=== PATIENT | female | born 1945 | race Caucasian/White ===

== ENCOUNTER 2019-04-02 14:21 | Emergency (ER) | payer MEDICARE ==
--- NOTE | 2019-04-02 14:56 | ED ---
Syncope/Near Syncope - HPI Summary HPI Summary: Pt is a 73 y/o F presenting to the ED with a chief complaint of syncope. She states that last night around 1930, she began experiencing abdominal cramping, so she went to the bathroom and experienced a large amount of diarrhea accompanied by diaphoresis. She then went to lie down on the couch, and she experienced a syncopal episode for an unknown amount of time, but probably under an hour. Since then, she felt fine, but this morning after coming back from the [facility] market she began to feel lightheaded again. She did not have a syncopal episode today. She denies CP, SOB, palpitations, LE edema, LE myalgia , fever, vomiting, blood in stool, or vaginal bleeding. She notes she has been becoming fatigued quickly in comparison to normal, and has been meaning to see her guest service aide about this. - History Of Current Complaint Chief Complaint: EDSyncope Time Seen by Provider: 04/02/19 14:27 Hx Obtained From: Patient Onset/Duration: Sudden Onset, Resolved, Other - duration unknown Timing: Intermittent Episode Lasting Context: Unwitnessed, Loss Of Consciousness Activity At Onset: Other - walking to lie down after episode of diarrhea Aggravating Factor(s): Nothing Alleviating Factor(s): Spontaneous Resolution Associated Signs And Symptoms: Diarrhea, Diaphoresis, Lightheadedness Frequency: Episodes x___ - 1, Episodes Lasting ____ (in Mins/Days/Weeks/Years) - unknown - Allergies/Home Medications Allergies/Adverse Reactions: Allergies Allergy/AdvReac Type Severity Reaction Status Date / Time MS Alendronate [From Fosamax] Allergy Unknown Unknown Verified 12/28/18 08:51 Reaction Details MS Eszopiclone [From Lunesta] Allergy Unknown Unknown Verified 12/28/18 08:51 Reaction Details PMH/Surg Hx/FS Hx/Imm Hx Previously Healthy: Yes Endocrine/Hematology History: Denies: Hx Blood Disorders - blood clots, Hx Diabetes, Hx Thyroid Disease Cardiovascular History: Reports: Hx Valvular Heart Disease - mitral valve replacement 2yrs ago Denies: Hx Hypertension Respiratory History: Reports: Hx Sleep Apnea Denies: Hx Asthma, Hx Chronic Obstructive Pulmonary Disease (COPD) GI History: Denies: Hx Ulcer Musculoskeletal History: Reports: Hx Rheumatoid Arthritis, Hx Osteoporosis - Surgical History Surgery Procedure, Year, and Place: T&A Infectious Disease History: No Infectious Disease History: Denies: Hx Hepatitis, Hx Human Immunodeficiency Virus (HIV), Traveled Outside the [place] in Last 30 Days - Family History Known Family History: Negative: Diabetes, Blood Disorder - Social History Alcohol Use: None Hx Substance Use: No Substance Use Type: Reports: None Hx Tobacco Use: No Smoking Status (MU): Never Smoked Tobacco Review of Systems Positive: Fatigue - easier to fatigue on exertion. Negative: Fever Negative: Palpitations, Chest Pain Negative: Shortness Of Breath Positive: Abdominal Pain, Diarrhea. Negative: Vomiting, Other - blood in stool Negative: other - vaginal bleeding Negative: Myalgia, Edema Neurological: Other - lightheadedness Positive: Syncope All Other Systems Reviewed And Are Negative: Yes Physical Exam - Summary Physical Exam Summary: Constitutional: Well-developed, Well-nourished, Alert. (-) Distressed Skin: Warm, Dry HENT: Normocephalic; Atraumatic Eyes: Conjunctiva normal Neck: Musculoskeletal ROM normal neck. (-) JVD, (-) Stridor, (-) Tracheal deviation Cardio: Rhythm regular, rate normal, Heart sounds normal; Intact distal pulses; Radial pulses are 2+ and symmetric. 3/6 systolic murmur present. Pulmonary/Chest wall: Effort normal. (-) Respiratory distress, (-) Wheezes, (-) Rales Abd: Soft, (-) tenderness, (-) Distension, (-) Guarding, (-) Rebound Musculoskeletal: (-) Edema Lymph: (-) Cervical adenopathy Neuro: Alert, Oriented x3 Psych: Mood and affect Normal Triage Information Reviewed: Yes Vital Signs On Initial Exam: Initial Vitals Temp Pulse Resp BP Pulse Ox 97.4 F 76 14 165/80 100 04/02/19 14:23 04/02/19 14:23 04/02/19 14:23 04/02/19 14:23 04/02/19 14:23 Vital Signs Reviewed: Yes Procedures - Sedation Patient Received Moderate/Deep Sedation with Procedure: No Diagnostics - Vital Signs Vital Signs Temp Pulse Resp BP Pulse Ox 04/02/19 14:23 97.4 F 76 14 165/80 100 - Laboratory Result Diagrams: 04/02/19 14:54 04/02/19 14:54 Lab Statement: Any lab studies that have been ordered have been reviewed, and results considered in the medical decision making process. - EKG 1449 Cardiac Rate: NL - 72bpm EKG Rhythm: Sinus Rhythm ST Segment: Normal Ectopy: None Summary of EKG Findings: EKG at 1449 shows NSR at 72bpm with no STEMI. Re-Evaluation - Re-Evaluation 1st re-eval Re-Evaluation Time: 16:00 Change: Improved Comment: Pt is asymptomatic here in the ED. I offered her admission and she declined. Course/Dx Course Of Treatment: Patient is here with 2 episodes of syncope/presyncope. Patient's first episode did sound orthostatic in nature as she fainted after getting off of the toilet. Her second episode today was more concerning as she was standing for an extended period of time prior to this. Patient arrived appearing well overall. Patient had a normal EKG. Patient a CBC, CMP, troponin , BNP performed for all grossly unremarkable outside of mild hyponatremia which she is aware of. Patient did have a UA which showed UTI. Patient started on Macrobid. Patient was offered admission for syncope but declined. - Diagnoses Provider Diagnoses: Syncope, UTI (urinary tract infection) Discharge ED - Sign-Out/Discharge Documenting (check all that apply): Patient Departure - Discharge Plan Condition: Stable Disposition: HOME Prescriptions: Nitrofurantoin Monohyd/M-Cryst [Macrobid 100 mg Capsule] 100 mg PO BID 5 Days # 10 cap Patient Education Materials: Urinary Tract Infection in Older Adults (ED), Syncope in Older Adults (ED) Referrals: Isaac Fuller MD [Primary Care Provider] - Additional Instructions: Take your antibiotics as prescribed. Call 911 if you have another episode where you feel like you are going to faint , you feel chest pain, or your heart is racing. Follow up with Dr. Fuller within the next 1-3 days. - Billing Disposition and Condition Condition: STABLE Disposition: Home - Attestation Statements Document Initiated by Scribe: Yes Documenting Scribe: Letty Clifton Provider For Whom Hanna is Documenting (Include Credential): Kev Day MD. Scribe Attestation: Letty Barraza, scribed for Kev Day MD. on 04/02/19 at 1647. Scribe Documentation Reviewed: Yes Provider Attestation: The documentation as recorded by the scribe, Letty Clifton accurately reflects the service I personally performed and the decisions made by me, Kev Day MD. Status of Terraibmagdaleno Document: Viewed
[2019-04-02 15:05] LABS: ABS Eosinophils 0.2 10^3/ul (0-0.6); ABS Lymphocytes 2.6 10^3/ul (1.0-4.8); ABS Monocytes 0.8 10^3/ul (0-0.8); ABS Neutrophils 3.1 10^3/ul (1.5-7.7); Eosinophil % 3.3 %; Hematocrit 30 % (35-47); Hemoglobin 10.1 g/dL (12.0-16.0); Lymphocyte % 38.1 %; Mean Corpuscular HGB Conc 33 g/dL (31-36); Mean Corpuscular Hemoglobin 30 pg (27-31); Mean Corpuscular Volume 91 fL (80-97); Mean Platelet Volume 7.3 fL (7.4-10.4); Nucleated Red Blood Cells % 0.1; Platelet Count 303 10^3/uL (150-450); Red Blood Count 3.33 10^6 /uL (3.70-4.87); Red Cell Distribution Width 15 % (10-15); White Blood Count 6.7 10^3/uL (3.5-10.8)
--- OUTSIDE RECORDS SUMMARY | 2019-04-02 15:31 | XMS REPORT | Continuity of Care Document ---
:1945 External Reference #:[id number] Author Name Nata Godwin DNP, RN, VIBRATING SCREED OPERATOR-BC (transmitted by agent of provider Mariella Bourgeois) Address [address], [address] [place] [id number] Care Team Providers Name Role Phone Isaac Fuller MD - Endocrinology, Care Team Information Service Desk Director Diabetes & Metabolism Chief Safety Officer Prosthetics & Orthotics - Care Team Information Service Desk Director [phone] Prosthetic/Orthotic Supplier Payal Pope PA - Medical Care Team Information Service Desk Director Yrn Schultz MD - Rheumatology Care Team Information Service Desk Director Problems Active Problems Provider Date Rheumatoid arthritis Theron Brown M.D. Onset: 04/30/2012 Medications Dispatch Manager (Current) Use Theron Brown M.D. Onset: 04/30/2012 Encounter Osteoporosis Theron Brown M.D. Onset: 10/29/2012 Taking medication CASIMIRO Winslow Onset: 12/06/2014 Obstructive sleep apnea syndrome Nata Godwin DNP, RN, VIBRATING SCREED OPERATOR-BC Onset: 05/2019 Hypersomnia Nata Godwin DNP, RN, VIBRATING SCREED OPERATOR-BC Onset: 01/07/2019 Sleep-wake schedule disorder, Nata Godwin DNP, RN, VIBRATING SCREED OPERATOR-BC Onset: 2018 advanced phase type Social History Type Date Description Comments Sex Unknown Tobacco Use Start: Unknown Never Smoked Cigarettes Smoking Status Reviewed: 02/22/19 Never Smoked Cigarettes ETOH Use Denies alcohol use Tobacco Use Start: Unknown Patient has never smoked Recreational Drug Use Denies Drug Use Exercise Type/Frequency Exercises regularly Lives on 5th floor and walks stairs, shakes to music 15 min. per day, yoga 3x per week, physical activities at [facility]: 2 classes, 3x per week each Exercise Type/Frequency Exercises at a [facility] 6 days per week club daily Allergies, Adverse Reactions, Alerts Active Allergies Reaction Severity Comments Date Fosamax 10/07/2016 Lunesta 10/07/2016 Inactive Allergies NKDA 11/26/2010 Medications Active Medications SIG Qnty Indications Ordering Provider Date Enbrel inject 1ml 8units M05.79 Yrn Schultz, 12/19/2014 25mg Solution (25mg) under the M.D. Rec skin once weekly Z79.899 Vitamin D3 1 by mouth daily Unknown 2000Iu Capsules [id number] Ethyl Esters 1 by mouth daily Unknown 1gm Capsules Biotin 5mg 1 daily Unknown Capsules Prolia 60 mg sc [id number] Unknown 60mg/ml Solution Multi Vitamin Osteoprime Forte bone formula. 2 Unknown by mouth two times per day. Immunizations Description No Information Available Vital Signs Date Vital Result Comment 02/22/2019 11:26am Height 64 inches 5'4" Weight 116.50 lb Heart Rate 80 /min BP Systolic Sitting 104 mmHg Lue reg cuff BP Diastolic Sitting 64 mmHg Lue reg cuff Respiratory Rate 18 /min O2 % BldC Oximetry 98 % On Ra BMI (Body Mass Index) 20.0 kg/m2 01/07/2019 9:08am Height 64 inches 5'4" Weight 120.00 lb Heart Rate 80 /min BP Systolic Sitting 92 mmHg left arm reg cuff BP Diastolic Sitting 60 mmHg left arm reg cuff Respiratory Rate 12 /min O2 % BldC Oximetry 97 % room air BMI (Body Mass Index) 20.6 kg/m2 Results Test Date Facility Test Result H/L Range Note CBC Auto 11/08/2018 [facility] White Blood 10.1 10^3/uL Normal 3.5-10.[address] [place] [address] [phone] Red Blood Count 3.40 10^6/uL Low 3.70-4.87 Hemoglobin 10.1 g/dL Low 12.0-16.0 Hematocrit 30 % Low 35-47 Mean Corpuscular Volume 88 fL Normal 80-97 Mean Corpuscular Hemoglobin 30 pg Normal 27-31 Mean Corpuscular HGB Conc 34 g/dL Normal 31-36 Red Cell Distribution Width 14 % Normal 10.5-15 Platelet Count 289 10^3/uL Normal 150-450 Mean Platelet Volume 7.9 fL Normal 7.4-10.4 Abs Neutrophils 6.2 10^3/uL Normal 1.5-7.7 Abs Lymphocytes 2.3 10^3/uL Normal 1.0-4.8 Abs Monocytes 1.5 10^3/uL High 0-0.8 Abs Eosinophils 0.1 10^3/uL Normal 0-0.6 Abs Basophils 0.0 10^3/uL Normal 0-0.2 Abs Nucleated RBC 0.0 10^3/uL Granulocyte % 61.4 % Lymphocyte % 22.6 % Monocyte % 15.2 % Eosinophil % 0.6 % Basophil % 0.2 % Nucleated Red Blood Cells % 0.0 Laboratory test 11/08/2018 [facility] Ferritin 18.7 ng/mL Normal 11-307 finding [address] [place] [address] [phone] Iron & Iron 11/08/2018 [facility] Total Iron 388 g/dL Normal 250-450 Binding [address] [facility] [place] [address] Capacity [phone] Transferrin 277 mg/dL Normal 203-362 Iron < 17 g/dL Low 50-212 Unsaturated Iron Binding < 373 g/dL % Iron Saturation 4 % Low 15-55 Laboratory test 11/08/2018 [facility] Magnesium 2.0 mg/dL Normal 1.9-2.7 finding [address] [place] [address] [phone] TSH (Thyroid Stim Horm) 0.76 mcIU/mL Normal 0.34-5.60 Vitamin B12 496 pg/mL Normal 180-914 1 1,25 Dihydroxy 11/08/2018 [facility] Calcitriol 53 pg/mL 18- 78 2 Vitamin D [address] [place] [address] [phone] Basic Metabolic 11/08/2018 [facility] Sodium 134 mmol/L Low 135-145 Panel [address] [place] [address] [phone] Potassium 4.3 mmol/L Normal 3.5-5.0 Chloride 102 mmol/L Normal 101-111 Co2 Carbon Dioxide 26 mmol/L Normal 22-32 Anion Gap 6 mmol/L Normal 2-11 Glucose 114 mg/dL High 70-100 Blood Urea Nitrogen 13 mg/dL Normal 6-24 Creatinine 0.55 mg/dL Normal 0.51-0.95 BUN/Creatinine Ratio 23.6 High 8-20 Egfr Non- 107.8 >60 Egfr 130.4 >60 3 Laboratory test 11/08/2018 [facility] Calcium 8.7 mg/dL Normal 8.6-10.3 finding [address] [place] [address] [phone] 1 Normal Range 180 to 914 Indeterminate Range 145 to 180 Deficient Range <145 2 ADDITIONAL INFORMATION This test was developed and its performance characteristics determined by [facility] in a manner consistent with CLIA requirements. This test has not been cleared or approved by the U.S. Food and Drug Administration. Test Performed by: [facility] [address] [place] [address] 3 Because ethnic data is not always readily available, this report includes an eGFR for both -Americans and non- Americans. The National Kidney Disease Education Program (NKDEP) does not endorse the use of the MDRD equation for patients that are not between the ages of 18 and 70, are , have extremes of body size, muscle mass, or nutritional status, or are non- or non-. According to the National Kidney Foundation, irrespective of diagnosis, the stage of the disease is based on the level of kidney function: Stage Description GFR(mL/min/1.73 m(2)) 1 Kidney damage with normal or decreased GFR 90 2 Kidney damage with mild decrease in GFR 60-89 3 Moderate decrease in GFR 30-59 4 Severe decrease in GFR 15-29 5 Kidney failure <15 (or dialysis) Procedures Date Code Description Status 09/29/2018 50060 Polysomnography Sleep Staging 4+ Parameters Completed 09/02/2018 15176 Sleep Study Unattended,HRT Rate,Oxygen Sat,Resp Completed Effort/Airflow 05/24/2010 44949876 Mammogram Completed Medical Devices Description No Information Available Encounters Type Date Location Provider Dx Diagnosis Office Visit 01/07/2019 Pulmonology And Nata Godwin, G47.33 Obstructive sleep 9:15a [facility] RN, [facility] apnea (adult) [facility] (pediatric) G47.14 Hypersomnia due to medical condition 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, advanced sleep phase type Office Visit 01/04/2019 2:30p Rheumatology Yessenia Summers, M05.79 Rhe[facility] rheu factor mult site w/o org/sys involv D50.9 Iron deficiency anemia, unspecified G47.33 Obstructive sleep apnea (adult) (pediatric) Z79.899 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 Office Visit 12/15/2018 Pulmonology And Nata G47.33 Obstructive sleep 2:30p [facility] Godwin RN, apnea (adult) [facility] (pediatric) D50.9 Iron deficiency anemia, unspecified R53.82 Chronic fatigue, unspecified Office Visit 12/13/2018 9:30a [facility] Payal Pope, R53.82 Chronic fatigue, [facility] unspecified R14.0 Abdominal distension (gaseous) G47.33 Obstructive sleep apnea (adult) (pediatric) D50.9 Iron deficiency anemia, unspecified [facility] Chronic fatigue, [facility] unspecified R14.0 Abdominal distension (gaseous) M05.79 Rheu arthritis rheu factor mult site w/o org/sys involv G47.33 Obstructive sleep apnea (adult) (pediatric) D50.9 Iron deficiency anemia, unspecified M85.80 Ot disrd of bone density and structure, unspecified site Office Visit 11/03/2018 2:30p Pulmonology And Nata R06.81 Apnea, not [facility] Godwin, RN, elsewhere [facility] classified G47.14 Hypersomnia due to medical condition R09.02 Hypoxemia R53.83 Other fatigue Office Visit 09/02/2018 3:00p Pulmonology And Di G47.9 Sleep disorder, [facility] MD Nadine unspecified [facility] G47.33 Obstructive sleep apnea (adult) (pediatric) Assessments Date Code Description Provider 02/22/2019 G47.33 Obstructive sleep apnea (adult) Nata Godwin DNP, RN, VIBRATING SCREED OPERATOR-BC (pediatric) 02/22/2019 G47.14 Hypersomnia due to medical Nata Godwin DNP, RN, VIBRATING SCREED OPERATOR- BC condition 02/22/2019 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, Nata Godwin DNP, RN , VIBRATING SCREED OPERATOR-BC advanced sleep phase type 01/07/2019 G47.33 Obstructive sleep apnea (adult) Nata Godwin DNP, RN, VIBRATING SCREED OPERATOR-BC (pediatric) 01/07/2019 G47.14 Hypersomnia due to medical Nata Godwin DNP, RN, VIBRATING SCREED OPERATOR- BC condition 01/07/2019 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, Nata Godwin DNP, RN , VIBRATING SCREED OPERATOR-BC advanced sleep phase type 01/04/2019 M05.79 Rheumatoid arthritis with Zsofia Kristopher, VIBRATING SCREED OPERATOR rheumatoid factor of multiple site 01/04/2019 D50.9 Iron deficiency anemia, Zsofia Kristopher, VIBRATING SCREED OPERATOR unspecified 01/04/2019 G47.33 Obstructive sleep apnea (adult) Zsofia Kristopher, VIBRATING SCREED OPERATOR (pediatric) 01/04/2019 Z79.899 Other automotive sales professional (current) drug Zsofia Kristopher, VIBRATING SCREED OPERATOR therapy 12/15/2018 G47.33 Obstructive sleep apnea (adult) Nata Godwin DNP, RN, VIBRATING SCREED OPERATOR-BC (pediatric) 12/15/2018 D50.9 Iron deficiency anemia, Nata Godwin DNP, RN, VIBRATING SCREED OPERATOR-BC unspecified 12/15/2018 R53.82 Chronic fatigue, unspecified Nata Godwin DNP, RN, VIBRATING SCREED OPERATOR -BC 12/13/2018 R53.82 Chronic fatigue, unspecified Payal Pope PA 12/13/2018 R14.0 Abdominal distension (gaseous) RASHAUN Donahue 12/13/2018 G47.33 Obstructive sleep apnea (adult) RASHAUN Donahue (pediatric) 12/13/2018 D50.9 Iron deficiency anemia, RASHAUN Donahue unspecified 11/18/2018 R53.82 Chronic fatigue, unspecified RASHAUN Donahue 11/18/2018 R14.0 Abdominal distension (gaseous) RASHAUN Donahue 11/18/2018 M05.79 Rheumatoid arthritis with RASHAUN Donahue rheumatoid factor of multiple site 11/18/2018 G47.33 Obstructive sleep apnea (adult) RASHAUN Donahue (pediatric) 11/18/2018 D50.9 Iron deficiency anemia, RASHAUN Donahue unspecified 11/18/2018 M85.80 Other specified disorders of bone RASHAUN Donahue density and structure, uns 11/03/2018 R06.81 Apnea, not elsewhere classified Nata Godwin DNP, RN, VIBRATING SCREED OPERATOR-BC 11/03/2018 G47.14 Hypersomnia due to medical Nata Godwin DNP, RN, VIBRATING SCREED OPERATOR- BC condition 11/03/2018 R09.02 Hypoxemia Nata Godwin DNP, RN, VIBRATING SCREED OPERATOR-BC 11/03/2018 R53.83 Other fatigue Nata Godwin DNP, RN, VIBRATING SCREED OPERATOR-BC 09/29/2018 R06.83 Snoring Di Mccoy MD 09/29/2018 R40.0 Somnolence Di Mccoy MD 09/29/2018 R06.81 Apnea, not elsewhere classified Di Mccoy MD 09/02/2018 G47.33 Obstructive sleep apnea (adult) Di Mccoy MD (pediatric) 09/02/2018 G47.9 Sleep disorder, unspecified Di Mccoy MD 09/02/2018 G47.33 Obstructive sleep apnea (adult) Di Mccoy MD (pediatric) Plan of Treatment Future Appointment(s):04/11/2019 9:30 am - Nata Godwin DNP, RN, VIBRATING SCREED OPERATOR-BC at [facility]07/12/2019 2:00 pm - CASIMIRO Winslow at [facility]02/22/2019 - Nata Godwin DNP, RN, VIBRATING SCREED OPERATOR- BCG47.33 Obstructive sleep apnea (adult) (pediatric)New Orders:Sleep Study, Ordered: 02/22/19Sleep-Homecare, Ordered: 02/22/19Comments:Sleep Apnea - NPSG AHI 40.1/hour, tiara oxygen 90% BMI 21.5Follow up:6 weeksRecommendations:Continue PAP device, Benefitting and compliant with treatment. Cleaning Wipe off mask daily (baby wipe-no scent, or warm water) Clean mask, tubing, filter, and water chamber weekly in mild no scent dish soap and water. Hang to dry. If you have any sleepiness while driving you MUST avoid operating a vehicle or machinery. If you have difficulty with your equipment, or need to replace your mask or hoses, please contact your homecare agency. A weight change of 20 pounds or more may have an effect onyour equipment ; if you are experiencing problems please call for an appointment. If you have any further questions, please call the [facility] at .G47.14 Hypersomnia due to medical conditionRecommendations:Will need to conduct Maintenance of Wakefulness Test (MWT) If you have any sleepiness while driving you MUST avoid operating a vehicle or machinery.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, advanced sleep phase typeRecommendations:Advanced sleep phase Bedtime 10 PM, wake-up time 4 AM try to be consistent with the wake up time andcut back on the number of naps you take per day. Work with Payal about the sleepiness after meals. Functional Status Description No Information Available Mental Status Description No Information Available Referrals Description No Information Available
[2019-04-02 15:50] LABS: Albumin 3.9 g/dL (3.2-5.2); Albumin/Globulin Ratio 1.4 (1-3); BUN/Creatinine Ratio 25.5 (8-20); Calcium 9.1 mg/dL (8.6-10.3); EGFR African American 142.3 (>60); EGFR Non-African American 117.6 (>60); Globulin 2.8 g/dL (2-4); Potassium 4.1 mmol/L (3.5-5.0); Total Bilirubin 0.3 mg/dL (0.2-1.0); Total Protein 6.7 g/dL (6.4-8.9)
[2019-04-02 16:20] LABS: Urine Appearance Cloudy; Urine Bacteria 1+ (Absent); Urine Bilirubin Negative (Negative); Urine Blood Negative (Negative); Urine Color Yellow; Urine Glucose Negative (Negative); Urine Ketones Negative (Negative); Urine Nitrite Negative (Negative); Urine Protein Negative (Negative); Urine Red Blood Cell Trace(0-2/hpf) (Absent); Urine Specific Gravity 1.009 (1.010-1.030); Urine Urobilinogen Negative (Negative); Urine White Blood Cell Trace(0-5/hpf) (Absent)
[2019-04-02 16:42] VITALS: BP 110/58
== END 2019-04-02 16:39 | disposition home or self-care (01) ==
LOC: ED 14:21
DX: R55 Syncope and collapse (principal); N39.0 Urinary tract infection, site not specified; Z95.2 Presence of prosthetic heart valve; Z88.8 Allergy status to other drugs, medicaments and biological substances; Z79.899 Other long term (current) drug therapy
CPT/HCPCS: 36415; 80053; 81003; 81015; 83880; 84484; 85025; 87077; 87086; 87186; 93005; 99282

== ENCOUNTER 2019-07-31 14:30 | Emergency (ER) | payer MEDICARE ==
--- NOTE | 2019-07-31 15:57 | ED ---
Altered Mental Status - HPI Summary HPI Summary: 73 year old female presents to the ED with a chief complaint of memory loss starting yesterday morning. Patient family concerned that she has had poor recollection over the past several days. 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 She is normally alert and has good memory at baseline. Patient's family also reports nausea, vomiting, and diarrhea 2 days ago, now resolved. No fever. Patient has been eating normally today, did have slightly dec PO intake past several days. Patient presented to the ED with a urinary infection several months ago. History of pace maker. No history of blood thinners. No recent trauma or falls. No similar presentations in past. - History Of Current Complaint Chief Complaint: EDNeurologicalDeficit Stated Complaint: MEMORY LOSS PER PT Time Seen by Provider: 07/31/19 15:16 Hx Obtained From: Patient, Family/Medical Recruiter Hx From Patient Unobtainable Due To: Altered Mental Status Onset/Duration: Still Present, Suddenly Timing: Lasting Days Severity Initially: Moderate Severity Currently: Moderate Character: Confusion Aggravating Factor(s): Unknown Alleviating Factor(s): Unknown Associated Signs And Symptoms: Positive: Nausea. Negative: Fever - Allergies/Home Medications Allergies/Adverse Reactions: Allergies Allergy/AdvReac Type Severity Reaction Status Date / Time No Known Allergies Allergy Verified 07/31/19 14:35 PMH/Surg Hx/FS Hx/Imm Hx Endocrine/Hematology History: Denies: Hx Blood Disorders - blood clots, Hx Diabetes, Hx Thyroid Disease Cardiovascular History: Reports: Hx Valvular Heart Disease - mitral valve replacement 2yrs ago Denies: Hx Hypertension Respiratory History: Reports: Hx Sleep Apnea Denies: Hx Asthma, Hx Chronic Obstructive Pulmonary Disease (COPD) GI History: Denies: Hx Ulcer Musculoskeletal History: Reports: Hx Rheumatoid Arthritis, Hx Osteoporosis - Surgical History Surgery Procedure, Year, and Place: T&A Infectious Disease History: No Infectious Disease History: Denies: Hx Hepatitis, Hx Human Immunodeficiency Virus (HIV), Traveled Outside the [place] in Last 30 Days - Family History Known Family History: Negative: Diabetes, Blood Disorder - Social History Alcohol Use: None Hx Substance Use: No Substance Use Type: Reports: None Hx Tobacco Use: No Smoking Status (MU): Never Smoked Tobacco Review of Systems Negative: Fever Positive: Vomiting, Diarrhea, Nausea Neurological: Other - Amnesia All Other Systems Reviewed And Are Negative: Yes Physical Exam - Summary Physical Exam Summary: Constitutional: Well-developed, Well-nourished, Alert. (-) Distressed Skin: Warm, Dry HENT: Normocephalic; Atraumatic Eyes: Conjunctiva normal Neck: Musculoskeletal ROM normal neck. (-) JVD, (-) Stridor, (-) Nuchal rigidity Cardio: Rhythm regular, rate normal, Heart sounds normal; Intact distal pulses; Radial pulses are 2+ and symmetric. +Systolic heart murmur. Pulmonary/Chest wall: Effort normal. (-) Respiratory distress, (-) Wheezes, (-) Rales Abd: Soft, (-) tenderness, (-) Distension, (-) Guarding, (-) Rebound Musculoskeletal: (-) Edema Neuro: Alert, Oriented x3, CN 2-12 grossly intact, strength 5/5 UE and LE. SILT. Ambulates w steady gait. Psych: Mood and affect Normal Triage Information Reviewed: Yes Vital Signs On Initial Exam: Initial Vitals Temp Pulse Resp BP Pulse Ox 97.6 F 75 18 143/67 98 07/31/19 14:31 07/31/19 14:31 07/31/19 14:31 07/31/19 14:31 07/31/19 14:31 Vital Signs Reviewed: Yes Procedures - Sedation Patient Received Moderate/Deep Sedation with Procedure: No Diagnostics - Vital Signs Vital Signs Temp Pulse Resp BP Pulse Ox 07/31/19 15:00 69 97 07/31/19 14:44 74 97 07/31/19 14:42 72 134/63 97 07/31/19 14:31 97.6 F 75 18 143/67 98 - Laboratory Result Diagrams: 07/31/19 15:54 07/31/19 15:54 Lab Statement: Any lab studies that have been ordered have been reviewed, and results considered in the medical decision making process. - Radiology CXR Radiology Interpretation Completed By: Radiologist Summary of Radiographic Findings: IMPRESSION: 1. No acute cardiopulmonary process by radiograph. 2. Postoperative changes as above. An ED physician has reviewed this report. - CT Brain CT CT Interpretation Completed By: Radiologist Summary of CT Findings: IMPRESSION: 1. No acute intracranial abnormality. 2. Mild chronic small vessel ischemic disease is likely. An ED physician has reviewed this exam. - EKG 1548 Cardiac Rate: NL - 67 bpm EKG Rhythm: Sinus Rhythm ST Segment: Normal Ectopy: None EKG Comparison: No Significant Change Summary of EKG Findings: An EKG at 15:48 reveals normal sinus rhythm at 67 bpm, nml axis, nml intervals. No STEMI. No acute changes. ED physician has reviewed and interpreted this EKG. Re-Evaluation - Re-Evaluation First Eval Re-Evaluation Time: 15:30 Change: Improved - d/w family about CT head and labs. Patient had B12 and TSH done several days ago. 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 Instructed to return to ED for worsening symptoms and given neurology follow up. Altered Mental Statu Course/Dx - Course Course Of Treatment: 73 y/o F w hx RA p/w episode of AMS/memory loss, now improving. - VSS NAD. PE w elderly female, AAOx3. Neuro exam unremarkable. - labs w Na 127 from 132 (do not think mild hyponatremia would cause symptoms), given IVF in setting of dehydration. No e/o PNA on CXR or infection on UA. CT brain neg for acute pathology. Salicylates neg. At this time, unclear cause of symptoms but no further emergent testing required. Patient still "foggy" about some things but improving per family. Can be safely discharged w family. - Diagnoses Provider Diagnoses: Confusion, Hyponatremia Is Visit Related: No Discharge ED - Sign-Out/Discharge Documenting (check all that apply): Patient Departure - Discharge home - Discharge Plan Condition: Stable Disposition: HOME Patient Education Materials: Encephalopathy (DC) Referrals: Dudley Arambula MD [Medical Doctor] - Additional Instructions: You were seen in the emergency department for confusion and memory loss. Your head CT did not show any other maladies. Your lab work showed a low sodium which can be seen in dehydration. We gave you IV fluids. You can follow-up with neurology as needed. If any studies were not completed at the time of discharge you will be called with the relevant results. Please follow up with your primary care doctor in next 2-3 days and return to emergency department for worsening confusion, fevers, falls, or concerning symptoms. It was a pleasure taking care of you today. - Billing Disposition and Condition Condition: STABLE Disposition: Home - Attestation Statements Document Initiated by Terraibmagdaleno: Yes Documenting Scribe: Oral Kyle Provider For Whom Hanna is Documenting (Include Credential): Gerry Mims MD Scribe Attestation: Oral Barraza, scribed for Gerry Mims MD on 07/31/19 at 1830. Scribe Documentation Reviewed: Yes Provider Attestation: The documentation as recorded by the scribeOral accurately reflects the service I personally performed and the decisions made by , Gerry Mims MD Status of Scribe Document: Viewed
[2019-07-31 16:01] LABS: ABS Lymphocytes 2.2 10^3/ul (1.0-4.8); ABS Monocytes 0.9 10^3/ul (0-0.8); ABS Neutrophils 4.3 10^3/ul (1.5-7.7); Eosinophil % 0.6 %; Hematocrit 29 % (35-47); Hemoglobin 9.7 g/dL (12.0-16.0); Lymphocyte % 29.7 %; Mean Corpuscular HGB Conc 34 g/dL (31-36); Mean Corpuscular Hemoglobin 31 pg (27-31); Mean Corpuscular Volume 91 fL (80-97); Mean Platelet Volume 7.3 fL (7.4-10.4); Nucleated Red Blood Cells % 0.1; Platelet Count 306 10^3/uL (150-450); Red Blood Count 3.18 10^6 /uL (3.70-4.87); Red Cell Distribution Width 14 % (10-15); White Blood Count 7.5 10^3/uL (3.5-10.8)
[2019-07-31 16:17] LABS: Salicylate < 2.50 mg/dL (<30)
[2019-07-31 16:18] LABS: ALT 27 U/L (7-52); AST 23 U/L (13-39); Albumin 3.8 g/dL (3.2-5.2); Albumin/Globulin Ratio 1.5 (1-3); Alkaline Phosphatase 42 U/L (34-104); Anion Gap 4 mmol/L (2-11); Blood Urea Nitrogen 12 mg/dL (6-24); CO2 Carbon Dioxide 26 mmol/L (22-32); Calcium 8.3 mg/dL (8.6-10.3); Chloride 97 mmol/L (101-111); EGFR African American 145.5 (>60); EGFR Non-African American 120.3 (>60); Globulin 2.5 g/dL (2-4); Glucose 104 mg/dL (70-100); Sodium 127 mmol/L (135-145); Total Protein 6.3 g/dL (6.4-8.9)
[2019-07-31 16:19] LABS: Troponin I 0.01 ng/mL (<0.03)
[2019-07-31 16:28] LABS: Urine Appearance Clear; Urine Color Straw
[2019-07-31] MEDS ORDERED: NS 0.9% 1000 ML** 1,000 ML IV ONE (16:31)
[2019-07-31 16:36] LABS: Urine Bilirubin Negative (Negative); Urine Blood Negative (Negative); Urine Glucose Negative (Negative); Urine Ketones Negative (Negative); Urine Nitrite Negative (Negative); Urine Protein Negative (Negative); Urine Specific Gravity 1.005 (1.010-1.030); Urine Urobilinogen Negative (Negative)
[2019-07-31 16:53] LABS: Magnesium 1.9 mg/dL (1.9-2.7)
[2019-07-31 18:11] VITALS: BP 136/60
[2019-08-02 08:55] LABS: % Iron Saturation 13 % (15-55); Iron 43 ug/dL (50-212); Total Iron Binding Capacity 332 mcg/dL (250-450); Transferrin 237 mg/dL (203-362)
[2019-08-02 10:23] LABS: Ferritin 35.3 ng/mL (11-307)
== END 2019-07-31 18:10 | disposition home or self-care (01) ==
LOC: ED 14:30
DX: R41.0 Disorientation, unspecified (principal); E87.1 Hypo-osmolality and hyponatremia; R11.0 Nausea; Z95.0 Presence of cardiac pacemaker; Z95.2 Presence of prosthetic heart valve
CPT/HCPCS: 36415; 70450; 71045; 80053; 80329; 81003; 82728; 83540; 83550; 83605; 83735; 84484; 85025; 93005; 96360; 99282; G0480